=== PATIENT | female | born 1985 | race Two or more races ===

== ENCOUNTER 2025-04-25 01:33 | Emergency (ER) | payer OTHER ==
[~2025-04-25] VITALS: Ht 165.1 cm; Wt 67.1 kg
[2025-04-25] MEDS ORDERED: IBUP-1492 PO (02:43)
[2025-04-25] MEDS ORDERED: LIDO11JE MM (02:43)
[2025-04-25 03:19] VITALS: BP 134/102; TEMP 98.7; O2SAT 98
== END 2025-04-25 03:19 | disposition home or self-care (01) ==
LOC: ER 01:37
DX: J02.9 Acute pharyngitis, unspecified (principal); R51.9 Headache, unspecified; H53.8 Other visual disturbances; Z60.2 Problems related to living alone